=== PATIENT | female | born 1985 | race Caucasian/White ===

== ENCOUNTER → 2017-12-18 | Outpatient (CLI) | payer OTHER ==
[2017-12-18 09:07] LABS: ALBUMIN 3.8 GM/DL (3.2-5.2); ALBUMIN/GLOBULIN RATIO 1.12 (1.00-1.93); ALKALINE PHOSPHATASE 77 U/L (45-117); ALT/SGPT 16 U/L (12-78); AMYLASE 77 U/L (25-115); AST/SGOT 12 U/L (7-37); BILIRUBIN,DIRECT 0.1 MG/DL (0.0-0.2); BILIRUBIN,TOTAL 0.4 MG/DL (0.2-1.0); FREE T4 1.08 NG/DL (0.76-1.46); LIPASE 131 U/L (73-393); TOTAL PROTEIN 7.2 GM/DL (6.4-8.2)
[2017-12-21 14:11] LABS: GASTRIN 13 pg/mL (0-115)
[2017-12-21 14:11] LABS: TISSUE TRANSGLUTAMINASE IgA <2 U/mL (0-3)
== END ==
LOC: M LAB 07:56
DX: R10.13 Epigastric pain (principal)
CPT/HCPCS: 82150

== ENCOUNTER → 2017-12-24 | Outpatient (CLI) | payer OTHER ==
[~2017-12-24] MED LIST: GLUCAGON FOR INJ 1 MG VIAL (J1610) As Ordered; ISOVUE-370 76% 100ML VIAL (Q9967) As Ordered; VoLumen 0.1% SUSPENSION 450ML BOTTLE As Ordered
== END ==
LOC: M RAD 12:03
DX: R19.7 Diarrhea, unspecified (principal); R63.4 Abnormal weight loss
CPT/HCPCS: Q9967

== ENCOUNTER → 2018-01-12 | Day surgery (SDC) | payer OTHER ==
[~2018-01-12] MED LIST changes: -GLUCAGON FOR INJ 1 MG VIAL (J1610) As Ordered; -ISOVUE-370 76% 100ML VIAL (Q9967) As Ordered; +LIDOCAINE 2% INJ 100 MG/5 ML SDV (FOR ANES.) As Ordered; +ONDANSETRON 4MG/2ML VIAL (J2405) As Ordered; +PROPOFOL 200 MG/20 ML VIAL As Ordered; -VoLumen 0.1% SUSPENSION 450ML BOTTLE As Ordered; +ePHEDrine SULFATE 25 MG/5 ML(5MG/ML) SYRINGE As Ordered; +fentaNYL 100 MCG/2 ML INJECTION (J3010) As Ordered
[2018-01-12] MEDS: NS 1,000 ML IV (10:30)
== END | disposition home or self-care (01) ==
LOC: M OPP 10:02
DX: K57.30 Diverticulosis of large intestine without perforation or abscess without bleeding (principal); K64.8 Other hemorrhoids; R10.84 Generalized abdominal pain; K58.0 Irritable bowel syndrome with diarrhea; R63.4 Abnormal weight loss; F17.210 Nicotine dependence, cigarettes, uncomplicated; Z79.899 Other long term (current) drug therapy; Z91.041 Radiographic dye allergy status
CPT/HCPCS: 45380

== ENCOUNTER → 2020-11-14 | Outpatient (CLI) | payer OTHER ==
[~2020-11-14] MED LIST changes: +IBUP200C25 PO; -LIDOCAINE 2% INJ 100 MG/5 ML SDV (FOR ANES.) As Ordered; -ONDANSETRON 4MG/2ML VIAL (J2405) As Ordered; -PROPOFOL 200 MG/20 ML VIAL As Ordered; -ePHEDrine SULFATE 25 MG/5 ML(5MG/ML) SYRINGE As Ordered; -fentaNYL 100 MCG/2 ML INJECTION (J3010) As Ordered
--- NOTE | 2020-11-14 11:35 | REP ---
INDICATION: LBP. COMPARISON: Plain film lumbar spine 09/07/2015. TECHNIQUE: Sagittal T1, T2, STIR, axial T1 and T2 weighted images obtained. FINDINGS: There is [id number] multilevel degenerative disc disease with loss of disc height and disc desiccation seen within the lumbar spine, more notable at the L4-5 and L5-S1 levels. Vertebral heights are overall preserved. No malalignment. On the sagittal T2 weighted images, conus ends normally at L1 level. No significant canal stenosis. On the review of axial images, At L1-2 through L3-4 no significant canal or foraminal narrowing at L4-5 global disc bulge with mild canal narrowing and mild bilateral foraminal narrowing. There is a small annular tear at this level. At L5-S1 disc bulge with loss of disc height with [id number] right and moderate left foraminal narrowing and mild canal stenosis. IMPRESSION: Degenerative disc disease at L4-5 and L5-S1 levels. No significant canal stenosis or disc herniation. At L5-S1 disc bulge with loss of disc height with [id number] right and moderate left foraminal narrowing and mild canal stenosis. <Electronically signed by Jaswinder Maya > 11/14/20 [id number]
== END ==
LOC: M PLARAD 09:49
PROVIDERS: ATTEND Physician Assistant
DX: M54.2 Cervicalgia (principal)